=== PATIENT | female | born 1970 | race Caucasian/White ===

== ENCOUNTER 2017-10-17 19:37 | Emergency (ER) | payer SELFPAY ==
[~2017-10-17] VITALS: Ht 152.4 cm; Wt 90.7 kg
[2017-10-17] MEDS ORDERED: IV NORMAL SALINE 1,000ML 1,000 ML IV SCH (19:53)
[2017-10-17] MEDS ORDERED: 0.9 % SODIUM CHLORIDE 10 ML DISP.SYRIN. IV PRN (20:00)
[2017-10-17] MEDS ORDERED: KETOROLAC 30 MG/ML VIAL. IV ONE (20:00)
[2017-10-17] MEDS ORDERED: ACETAMINOPHEN 500 MG TABLET PO ONE (20:00)
--- NOTE | 2017-10-17 20:09 | PHYS DOC ---
Past History Past Medical History: No Pertinent History Past Surgical History: Cholecystectomy, Hysterectomy Smoking: Non-smoker Alcohol Use: None Drug Use: None Adult General Chief Complaint Chief Complaint: FLU SYMPTOM HPI HPI Patient is a pleasant otherwise healthy 46-year-old female who began having cough and runny nose and slight sore throat with cough to 3 days ago. She said that her cough is gotten more severe causing some chest discomfort when she coughs. She's had some abdominal pain now with nausea vomiting diarrhea 3-4 episodes per day for last day and half. She denies any blood in her stool denies any blood in her vomit. She's had low-grade fevers to 102.2 at home is sick contacts both at work and at home. Patient denies any travel outside the country denies any antibiotics. Patient denies any change in voice only some pain with swallowing or coughing. Patient denies any chest pain with exertion just with cough. She's been trying to take [id number] medication with minimal improvement. She denies any night sweats, weight loss, handling of poultry, reptiles or raw food consumption. She works at "" and was on. Patient denies any long car rides or other PE risk factors Differential diagnosis for chest pain: Pericarditis, myocarditis, endocarditis, pneumothorax, pneumonia, aortic dissection, esophageal spasm, esophagitis, peptic ulcer disease, acute coronary syndrome, mediastinitis, Boerhaave syndrome , musculoskeletal chest wall pain, costochondritis, intercostal strain, rib fracture, pulmonary contusion, pneumonitis, pleural effusion, pericardial effusion, pericardial tamponode, and pleurisy. Patient is negative by the rules below PERC Criteria Assessment: Age > 50: No HR > 100: No 02 < 95%: No H/o DVT/PE: No Recent trauma/surgery: No Hemoptysis No Exogenous Estrogen: No Unilateral Leg swelling: No Pretest probability > 15%: No Less than 2% risk of PE. No further work up is necessary Review of Systems Review of Systems Constitutional: Positive for fevers and chills Eyes: Denies change in visual acuity, redness, or eye pain [] HENT: Positive for nasal congestion and sore throat Respiratory: Positive for cough and shortness of breath] Cardiovascular: No additional information not addressed in HPI [] GI: Denies abdominal pain, nausea, vomiting, bloody stools or diarrhea [] : Denies dysuria or hematuria [] Musculoskeletal: Denies back pain or joint pain positive for myalgias Integument: Denies rash or skin lesions [] Neurologic: Positive for slight headache without focal neurologic weakness, sensory deficits, it is not worse of life and sudden onset[] Endocrine: Denies polyuria or polydipsia [] All other systems were reviewed and found to be within normal limits, except as documented in this note. Current Medications Current Medications Current Medications Medications (Trade) Dose Ordered Sig/Marika Start Time Stop Time Status Last Admin Dose Admin Acetaminophen (Tylenol) 1,000 mg 1X ONCE 10/17/17 20:00 10/17/17 20:01 DC Ketorolac Tromethamine (Toradol) 30 mg 1X ONCE 10/17/17 20:00 10/17/17 20:01 DC Sodium Chloride (Normal Saline Flush) 10 ml QSHIFT PRN 10/17/17 20:00 Allergies Allergies Allergies Coded Allergies Type Severity Reaction Last Updated Verified morphine Allergy Severe Anaphylaxis 10/17/17 Yes Physical Exam Physical Exam Other vital signs recorded on the chart patient noted to be tachycardic otherwise normal vital signs Constitutional: Well developed, well nourished, no acute distress, non-toxic appearance. [] HENT: Normocephalic, atraumatic, bilateral external ears normal, oropharynx mild erythema slight exits on the uvula only no tonsillar hypertrophy, no oral exudates, nose has clear rhinorrhea TMs are clear bilaterally. [] Eyes: PERRLA, EOMI, conjunctiva normal, no discharge. [] Neck: Normal range of motion, no tenderness, supple, no stridor. Mild anterior cervical lymphadenopathy[] Cardiovascular:Heart rate regular rhythm, no murmur [] Lungs & Thorax: Bilateral breath sounds clear to auscultation [] Abdomen: Bowel sounds normal, soft, no tenderness, no masses, no pulsatile masses. No guarding rebound or organomegaly. [] Skin: Warm, dry, no erythema, no rash. [] Back: No tenderness, no CVA tenderness. [] Extremities: No tenderness, no cyanosis, no clubbing, ROM intact, no edema. [] Neurologic: Alert and oriented X 3, normal motor function, normal sensory function, no focal deficits noted. [] Psychologic: Affect normal, judgement normal, mood normal. [] Current Patient Data Vital Signs Vital Signs Date Time Temp Pulse Resp B/P (MAP) Pulse Ox O2 Delivery O2 Flow Rate FiO2 10/17/17 19:48 98.4 108 18 98 Room Air EKG EKG []EKG read by me time of EKG is 8:05 PM 2017 demonstrates sinus rhythm heart rate of 95 SC interval is normal at 1:30 which is normal QRS width of 70 which is normal. Patient's QTc is 4.3 which is normal. Patient has no ST segment or T-wave changes consistent with acute coronary ischemia. There is some mild T-wave flattening in V1 which may be a normal variant. Radiology/Procedures Radiology/Procedures []Patient's PA and lateral chest x-ray read by me at 8:27 PM October 07 2017 demonstrates no acute pulmonary infiltrate, no subdiaphragmatic air, there is no hyperinflation no evidence of pleural effusion. This is normal chest x-ray Course & Med Decision Making Course & Med Decision Making Pertinent Labs and Imaging studies reviewed. (See chart for details) []Patient presents with overall myalgias cough runny nose and congestion with mild sore throat. I'm concerned upon arrival with the slight erythema although she has a cough with her symptoms of her oropharynx and uvula that this might be strep throat. Centor criteria: The Centor criteria are a widely used and accepted clinical decision tool These criteria are: Tonsillar exudates Tender anterior cervical adenopathy Fever by history Absence of cough The likelihood of having GAS increases with the number of Centor criteria. However, the Centor criteria are most useful in identifying patients for whom neither microbiologic tests nor antimicrobial therapy are necessary. Patients with fewer than three (0 to 2) Centor criteria are unlikely to have GAS and, in general, should not receive either antibiotic treatment or diagnostic testing. She deserved diagnostic testing because she only had 2 of the 4 criteria. She is strep negative, she is influenza A+. Chest x-rays unremarkable and her white blood cell count is normal. Patient is resting comfortably at 9 PM Patient tells me that their symptoms given during CC are improved. We reviewed labs and radiology reports with patient and any family at bedside. I discussed follow-up plan and encouraged good rest, fluid and hydration exercise and a good diet. She'll be given Tamiflu and good supportive medications for symptoms. Impression: Influenza a. discharge: I've spoken with the patient and/or caregivers. I've explained the patient's condition, diagnosis and treatment plan based on information available to me at this time. I've answered the patient's and/or caregivers questions and addressed any concerns. The patient and/or caregivers have a good understanding the patient's diagnosis, condition and treatment plan as can be expected at this point. Vital signs have been stabilized. The patient's condition is stable for discharge from the emergency department. The patient will pursue further outpatient evaluation with her primary care provider or other designated consulting physician as outlined in the discharge instructions. Patient and/or caregivers are agreeable to this plan of care and follow-up instructions have been explained in detail. The patient and/or caregivers have received these instructions in written format and expressed understanding of these discharge instructions. The patient and her caregivers are aware that if any significant change in condition or worsening of symptoms should prompt him to immediately return to this of the closest emergency department. If an emergent department is not readily available I would encourage him to call 911. Justo Disclaimer Justo Disclaimer This electronic medical record was generated, in whole or in part, using a voice recognition dictation system. Departure Departure: Impression: Primary Impression: Influenza A Disposition: 01 HOME, SELF-CARE Condition: STABLE Referrals: PCP,NO (PCP) Patient Instructions: Influenza Facts, Influenza Tests, Influenza, Adult Additional Instructions: discharge: I've spoken with the patient and/or caregivers. I've explained the patient's condition, diagnosis and treatment plan based on information available to me at this time. I've answered the patient's and/or caregivers questions and addressed any concerns. The patient and/or caregivers have a good understanding the patient's diagnosis, condition and treatment plan as can be expected at this point. Vital signs have been stabilized. The patient's condition is stable for discharge from the emergency department. The patient will pursue further outpatient evaluation with her primary care provider or other designated consulting physician as outlined in the discharge instructions. Patient and/or caregivers are agreeable to this plan of care and follow-up instructions have been explained in detail. The patient and/or caregivers have received these instructions in written format and expressed understanding of these discharge instructions. The patient and her caregivers are aware that if any significant change in condition or worsening of symptoms should prompt him to immediately return to this of the closest emergency department. If an emergent department is not readily available I would encourage him to call 911. Scripts Acetaminophen (TYLENOL) 325 Mg Tablet 1-2 TAB PO QID, #30 TAB 2 Refills Prov: HAILEY SIERRA MD 10/17/17 Oseltamivir Phosphate (TAMIFLU) 75 Mg Capsule 1 CAP PO BID, #10 CAP Prov: HAILEY SIERRA MD 10/17/17 Naproxen Sodium (NAPROXEN SODIUM) 275 Mg Tablet 275 MG PO BID for 7 Days, #14 TAB Prov: HAILEY SIERRA MD 10/17/17 Guaifenesin/Dextromethorphan (MUCINEX DM ER 1,200-60 MG TAB) 1 Each Tbmp.12hr 1 TAB PO BID, #20 TAB 1 Refill Prov: HAILEY SIERRA MD 10/17/17 HAILEY SIERRA MD Oct 17, 2017 20:09
[2017-10-17 20:42] LABS: BASO % 1 % (0-3); EOS # 0.1 x10^3/uL (0.0-0.7); EOS % 2 % (0-3); HEMATOCRIT 44.3 % (36.0-47.0); HEMOGLOBIN 14.9 g/dL (12.0-15.5); LYMPH # 1.6 x10^3/uL (1.0-4.8); LYMPH % 29 % (24-48); MEAN CORPUSCULAR HEMOGLOBIN 29 pg (25-35); MEAN CORPUSCULAR HGB CONC 34 g/dL (31-37); MEAN CORPUSCULAR VOLUME 87 fL (79-100); MONO # 0.7 x10^3/uL (0.0-1.1); MONO % 14 % (0-9); NEUT # 2.9 x10^3uL (1.8-7.7); NEUT % 55 % (31-73); PLATELET COUNT 282 x10^3/uL (140-400); RED BLOOD COUNT 5.09 x10^6/uL (3.50-5.40); RED CELL DISTRIBUTION WIDTH 13.3 % (11.5-14.5); WHITE BLOOD COUNT 5.4 x10^3/uL (4.0-11.0)
[2017-10-17 20:59] LABS: INFLUENZA A PATIENT POSITIVE (NEGATIVE); INFLUENZA B PATIENT NEGATIVE (NEGATIVE)
[2017-10-17] MEDS ORDERED: NAPR275T59 PO (21:06)
[2017-10-17] MEDS ORDERED: ACET325T9 PO (21:06)
[2017-10-17] MEDS ORDERED: GUAI1TBM10 PO (21:06)
[2017-10-17] MEDS ORDERED: OSEL75CA PO (21:06)
[2017-10-17 21:08] LABS: ALBUMIN 3.1 g/dL (3.4-5.0); ALK PHOS 90 U/L (46-116); ALT (SGPT) 45 U/L (14-59); ANION GAP 10 (6-14); AST (SGOT) 46 U/L (15-37); BLOOD UREA NITROGEN 8 mg/dL (7-20); CALCIUM 8.3 mg/dL (8.5-10.1); CARBON DIOXIDE 27 mmol/L (21-32); CHLORIDE 105 mmol/L (98-107); CREATININE 0.7 mg/dL (0.6-1.0); GFR 90.1; GLUCOSE 116 mg/dL (70-99); LIPASE 112 U/L (73-393); POTASSIUM 3.5 mmol/L (3.5-5.1); SODIUM 142 mmol/L (136-145); TOTAL BILIRUBIN 0.2 mg/dL (0.2-1.0); TOTAL PROTEIN 7.3 g/dL (6.4-8.2)
[2017-10-17 21:09] LABS: DIRECT BILIRUBIN < 0.1 mg/dL (0.0-0.2)
[2017-10-17 21:17] VITALS: BP 113/58
--- NOTE | 2017-10-17 21:58 | EKG ---
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 RI6.01 No previous ECG available for comparison Electronically Signed On 10-20-2017 10:01:16 PEDIATRIC UROLOGIST by Too Flores
--- NOTE | 2017-10-18 08:37 | RAD ---
2 view CXR: Clinical indications: Cough with sore throat for 5 days. Findings: No acute lung infiltrate or pleural effusion or pulmonary edema or lung mass or pneumothorax is seen. The heart size, pulmonary vasculature, mediastinum and both gera are unremarkable. The osseous structures appear intact. Impression: No acute radiographic abnormality is seen.
== END 2017-10-17 21:18 | disposition home or self-care (01) ==
LOC: ER 19:37
DX: J09.X2 Influenza due to identified novel influenza A virus with other respiratory manifestations (principal); Z88.5 Allergy status to narcotic agent
CPT/HCPCS: 36415; 71046; 80048; 80076; 82553; 83690; 83735; 83880; 84443; 84484; 85025; 87070; 87804; 87880; 93005; 96361; 96374; 99285; J1885; J7030

== ENCOUNTER 2018-10-06 11:57 | Emergency (ER) | payer SELFPAY ==
[~2018-10-06] VITALS: Ht 175.3 cm; Wt 104.2 kg
[~2018-10-06 11:57] MED LIST: ACET325T9 PO; GUAI1TBM10 PO; NAPR275T59 PO; OSEL75CA PO
[2018-10-06] MEDS ORDERED: IV NORMAL SALINE 1,000ML 1,000 ML IV SCH (12:20)
--- NOTE | 2018-10-06 12:25 | PHYS DOC ---
Past History Past Medical History: Anemia Past Surgical History: Cholecystectomy, Hysterectomy Smoking: Non-smoker Alcohol Use: None Drug Use: None Adult General Chief Complaint Chief Complaint: NAUSEA/VOMITING/DIARRHEA HPI HPI Patient is a 47-year-old female who presents with complaint of lower abdominal pain with nausea and vomiting that started on Wednesday. Patient has also had headache as well as symptoms of fever. She states that she has had difficulty in keeping anything down since the vomiting started. She states her last normal bowel movement was this morning. She denies any diarrhea. She denies chest pain but states that she has had some shortness of breath. She also indicates that she has had sore throat and was recently exposed to someone with strep. Patient rates her pain in her abdomen and 5 out of 10. She states that pain is worsened with palpation and with walking. Review of Systems Review of Systems Constitutional: Positive subjective fever and chills [] HENT: Complains of sore throat [] Respiratory: Complains of shortness of breath [] Cardiovascular: No additional information not addressed in HPI [] GI: Complains of abdominal pain with nausea and vomiting. Denies diarrhea [] Integument: Denies rash or skin lesions [] Neurologic: Admits to headache without focal weakness or sensory changes [] All other systems were reviewed and found to be within normal limits, except as documented in this note. Allergies Allergies Allergies Coded Allergies Type Severity Reaction Last Updated Verified morphine Allergy Severe Anaphylaxis 10/06/18 Yes Physical Exam Physical Exam Constitutional: Well developed, well nourished, no acute distress, non-toxic appearance. [] HENT: Normocephalic, atraumatic, bilateral external ears normal, oropharynx moist, no oral exudates, nose normal. [] Eyes: PERRLA, EOMI, conjunctiva normal, no discharge. [] Neck: Normal range of motion, no tenderness, supple, no stridor. [] Cardiovascular: Regular rate and rhythm [] Lungs & Thorax: Bilateral breath sounds clear to auscultation [] Abdomen: Bowel sounds normal, soft, with moderate lower abdominal tenderness, left greater than right. [] Skin: Warm, dry, no erythema, no rash. [] Extremities: No tenderness, no cyanosis, no clubbing, ROM intact, no edema. [] Neurologic: Alert and oriented X 3, no focal deficits noted. [] Current Patient Data Vital Signs Vital Signs Date Time Temp Pulse Resp B/P (MAP) Pulse Ox O2 Delivery O2 Flow Rate FiO2 10/06/18 12:00 97.4 104 18 97 Room Air EKG EKG [] Radiology/Procedures Radiology/Procedures [] Course & Med Decision Making Course & Med Decision Making Pertinent Labs and Imaging studies reviewed. (See chart for details) [] Dragon Disclaimer Dragon Disclaimer This electronic medical record was generated, in whole or in part, using a voice recognition dictation system. Departure Departure: Impression: Primary Impression: Pharyngitis Additional Impression: Lower abdominal pain Disposition: HOME, SELF-CARE Condition: STABLE Referrals: PCP,NO (PCP) Patient Instructions: Abdominal Pain, Viral and Bacterial Pharyngitis Scripts Tramadol Hcl (TRAMADOL HCL) 50 Mg Tablet 50 MG PO PRN Q6HRS PRN for PAIN, #12 TAB Prov: ADEEL BLAKE Jr. DO 10/06/18 Azithromycin (ZITHROMAX) 250 Mg Tablet 1 PKG PO UD for infection, #6 TAB Prov: ADEEL BLAKE Jr. DO 10/06/18 Ondansetron Hcl (ZOFRAN) 4 Mg Tablet 1 TAB PO PRN Q6-8HRS PRN for NAUSEA, #12 TAB Prov: ADEEL BLAKE Jr. DO 10/06/18 Problem Qualifiers Primary Impression: Pharyngitis Pharyngitis/tonsillitis etiology: unspecified etiology Qualified Codes: J02.9 - Acute pharyngitis, unspecified ADEEL BLAKE Jr. DO Oct 06, 2018 12:25
[2018-10-06 12:42] LABS: BASO # 0.1 x10^3/uL (0.0-0.2); BASO % 1 % (0-3); EOS # 0.2 x10^3/uL (0.0-0.7); EOS % 2 % (0-3); HEMATOCRIT 42.1 % (36.0-47.0); HEMOGLOBIN 14.3 g/dL (12.0-15.5); LYMPH # 1.2 x10^3/uL (1.0-4.8); LYMPH % 13 % (24-48); MEAN CORPUSCULAR HEMOGLOBIN 30 pg (25-35); MEAN CORPUSCULAR HGB CONC 34 g/dL (31-37); MEAN CORPUSCULAR VOLUME 87 fL (79-100); MONO # 1.1 x10^3/uL (0.0-1.1); MONO % 12 % (0-9); NEUT # 6.7 x10^3uL (1.8-7.7); NEUT % 72 % (31-73); PLATELET COUNT 294 x10^3/uL (140-400); RED BLOOD COUNT 4.84 x10^6/uL (3.50-5.40); RED CELL DISTRIBUTION WIDTH 14.1 % (11.5-14.5); WHITE BLOOD COUNT 9.3 x10^3/uL (4.0-11.0)
[2018-10-06] MEDS ORDERED: ONDANSETRON PF 4 MG/2 ML VIAL. IV ONE (12:50)
[2018-10-06] MEDS ORDERED: KETOROLAC 30 MG/ML VIAL. IV ONE (12:50)
[2018-10-06 12:57] LABS: ALBUMIN 3.5 g/dL (3.4-5.0); ALBUMIN/GLOBULIN RATIO 0.9 (1.0-1.7); CALCIUM 8.8 mg/dL (8.5-10.1); CREATININE 0.8 mg/dL (0.6-1.0); GFR 76.9; TOTAL BILIRUBIN 0.8 mg/dL (0.2-1.0); TOTAL PROTEIN 7.6 g/dL (6.4-8.2)
[2018-10-06 13:38] LABS: BACTERIA,URINE FEW /HPF (0-FEW); BILIRUBIN,URINE NEG (NEG); CLARITY,URINE HAZY; COLOR,URINE AMBER; GLUCOSE,URINE NEG (NEG); NITRITE,URINE NEG (NEG); SQUAMOUS EPITHELIAL CELL,UR MANY /LPF; UROBILINOGEN,URINE 1 mg/dL (0.2 mg/dL); WBC,URINE RARE /HPF (0-4)
[2018-10-06] MEDS ORDERED: TRAM50TA PO (14:57)
[2018-10-06] MEDS ORDERED: ONDA4TAB7 PO (14:57)
[2018-10-06] MEDS ORDERED: AZIT250T PO (14:57)
[2018-10-06 15:15] VITALS: BP 110/69
--- NOTE | 2018-10-07 17:17 | EKG ---
[address] [address] Test Date: 2018-10-06 Test Time: 12:13:20 Pat Name: DEVENDRA CUNNINGHAM Department: Room: Gender: F Thoracic Medicine Physician: NAZARIO : 1970 Requested By: ADEEL BLAKE Order Number: [id number] Reading MD: Trip Rivas MD Measurements Intervals [place] Rate: 93 P: 63 UT: 142 QRS: 59 QRSD: 76 T: 36 QT: 344 QTc: 430 Interpretive Statements SINUS RHYTHM Electronically Signed On 10-13-2018 8:51:04 THROAT CUTTER by Trip Rivas MD
== END 2018-10-06 15:16 | disposition home or self-care (01) ==
LOC: ER 11:57
DX: R10.32 Left lower quadrant pain (principal); R10.31 Right lower quadrant pain; J02.9 Acute pharyngitis, unspecified; R11.2 Nausea with vomiting, unspecified; R51 Headache; Z86.2 Personal history of diseases of the blood and blood-forming organs and certain disorders involving the immune mechanism; Z90.49 Acquired absence of other specified parts of digestive tract; Z90.710 Acquired absence of both cervix and uterus; Z88.5 Allergy status to narcotic agent
CPT/HCPCS: 36415; 80053; 81001; 81025; 83690; 85025; 87070; 87880; 96361; 96374; 96375; 99284; J1885; J2405; J7030